=== PATIENT | male | born 1935 | race Caucasian/White ===

== ENCOUNTER 2018-03-13 11:33 | Inpatient (IN) | payer MEDICARE, BC ==
[~2018-03-13] VITALS: Ht 165.1 cm; Wt 96.0 kg
[2018-03-13] VITALS (8 sets, daily range): BP systolic 130–165; BP diastolic 59–80
[2018-03-13] MEDS ORDERED: CARV25TA PO (14:31)
[2018-03-13] MEDS ORDERED: AMLO2.5T2 PO (14:34)
[2018-03-13] MEDS ORDERED: MULT-38 PO (14:34)
[2018-03-13] MEDS ORDERED: EZET10TA26 PO (14:34)
[2018-03-13] MEDS ORDERED: FLO0.4C PO (14:34)
[2018-03-13] MEDS ORDERED: CHOL100046 PO (14:42)
[2018-03-13] MEDS ORDERED: Fish Oil PO (14:42)
[2018-03-13] MEDS ORDERED: VITA100D6 PO (14:42)
[2018-03-13] MEDS ORDERED: ATR0.5NEB IH (14:47)
[2018-03-13] MEDS ORDERED: FLUT1AER INH (14:47)
[2018-03-13] MEDS ORDERED: ALBU1.257 NEB (14:47)
[2018-03-13] MEDS ORDERED: SENN1TAB5 PO (14:52)
[2018-03-13] MEDS ORDERED: MAGN296S50 PO (14:52)
[2018-03-13] MEDS ORDERED: MAGN800O PO (14:52)
[2018-03-13] MEDS: normal saline 1000ml 1,000 ML IV SCH (15:16)
[2018-03-13] MEDS ORDERED: magnesium hydroxide 30ml (MOM) UD suspension PO PRN ×2 (15:20)
[2018-03-13] MEDS ORDERED: mag hydrox/Alum hydrox/simeth 30ml oral suspension PO PRN (15:20)
[2018-03-13] MEDS ORDERED: bisacodyl 10mg suppository rectal RC PRN (15:20)
[2018-03-13] MEDS ORDERED: diphenhydrAMINE 25mg capsule PO PRN (15:20)
[2018-03-13] MEDS ORDERED: diphenhydrAMINE 50 mg/ml inj IV PRN (15:20)
[2018-03-13] MEDS ORDERED: HYDROcodone/acetaminophen 10/325mg tab PO PRN (15:20)
[2018-03-13] MEDS ORDERED: morphine 4 MG/ML inj SYRINge IV PRN ×2 (15:20)
[2018-03-13] MEDS ORDERED: ondansetron/PF 4mg/2ml inj IV PRN (15:20)
[2018-03-13] MEDS ORDERED: HYDROmorphone 1 mg/ml syringe IV PRN ×2 (15:20)
[2018-03-13] MEDS ORDERED: metoclopramide 5 mg/ml inj IV PRN (15:20)
[2018-03-13] MEDS ORDERED: acetaminophen 325mg tablet PO PRN ×2 (15:20)
[2018-03-13] MEDS ORDERED: dextrose ORAL solution 15 GM/59 ML bottle PO PRN (15:25)
[2018-03-13] MEDS ORDERED: dextrose 50%-water 50ml dispensing syringe IV PRN ×2 (15:25)
[2018-03-13] MEDS ORDERED: glucagon, human recombinant 1mg kit SUBCUT PRN (15:25)
[2018-03-13] MEDS ORDERED: MESSAGE TO PHARMACY PO ONE (15:25)
[2018-03-13 16:07] LABS: HEMOGLOBIN A1C 5.7 % (4.5-6.2)
[2018-03-13 16:21] LABS: LIPASE 104 U/L (73-393); MAGNESIUM 2.8 MG/DL (1.5-2.4); PHOSPHORUS 4.9 MG/DL (2.3-4.5)
[2018-03-13 16:51] LABS: PARTIAL THROMBOPLASTIN TIME 27 SECONDS (22-32)
[2018-03-13] MEDS ORDERED: fentaNYL/PF 50MCG/1 ML 2ML syringe ONE (16:51)
[2018-03-13] MEDS ORDERED: LIDOcaine Viscous 15ml cup ONE (16:51)
[2018-03-13] MEDS ORDERED: MIDAZolam 5mg/5ml vial ONE (16:51)
[2018-03-13 20:27] LABS: BASOPHILS % (AUTO) 0.1 % (0-1); EOSINOPHILS # (AUTO) 0.3 X10'3 (0-0.9); EOSINOPHILS % (AUTO) 2.2 % (0-6); HEMOGLOBIN 10.8 g/dl (14.0-17.9); LYMPHOCYTES # (AUTO) 0.7 X10'3 (1.1-4.8); LYMPHOCYTES % (AUTO) 5.3 % (21-51); MEAN CORPUSCULAR HEMOGLOBIN 30.1 PG (27.0-31.0); MEAN CORPUSCULAR HGB CONC 33.9 % (33.0-36.5); MEAN CORPUSCULAR VOLUME 88.7 FL (78-98); MEAN PLATELET VOLUME 7.6 FL (7.4-10.4); MONOCYTES # (AUTO) 0.8 X10'3 (0-0.9); MONOCYTES % (AUTO) 6.3 % (2-12); NEUTROPHILS # (AUTO) 10.9 X10'3 (1.8-7.7); NEUTROPHILS % (AUTO) 86.1 % (42-75); PLATELET COUNT 354 X10'3 (140-440); RED CELL DISTRIBUTION WIDTH 15.2 % (11.5-14.5); WHITE BLOOD COUNT 12.7 X10'3 (4.5-11.0)
[2018-03-13] MEDS: tamsulosin 0.4mg capsule PO SCH (20:32)
[2018-03-13] MEDS: pantoprazole 40MG/NS 100ML BAG 100 ML IV SCH (20:33)
[2018-03-13] MEDS: methylPREDNISolone sod succ 125mg/2ml vial IV SCH (20:33)
[2018-03-13] MEDS: carVEDilol 12.5mg tablet PO SCH (20:34)
[2018-03-13] MEDS: docusate sod 100mg capsule PO SCH (20:34)
[2018-03-13] MEDS: ipratropium 0.5 MG/2.5ML nebule IH SCH (20:51)
[2018-03-13] MEDS ORDERED: temazepam 15mg capsule PO PRN (21:00)
[2018-03-14] VITALS (19 sets, daily range): BP systolic 97–163; BP diastolic 50–77
[2018-03-14] MEDS: normal saline 1000ml 1,000 ML IV SCH ×3 (01:16→21:16)
[2018-03-14 04:49] LABS: BASOPHILS % (AUTO) 0 % (0-1); EOSINOPHILS # (AUTO) 0.1 X10'3 (0-0.9); EOSINOPHILS % (AUTO) 1.1 % (0-6); HEMOGLOBIN 11.3 g/dl (14.0-17.9); LYMPHOCYTES # (AUTO) 0.2 X10'3 (1.1-4.8); LYMPHOCYTES % (AUTO) 2.6 % (21-51); MEAN CORPUSCULAR HEMOGLOBIN 29.8 PG (27.0-31.0); MEAN CORPUSCULAR HGB CONC 33.3 % (33.0-36.5); MEAN CORPUSCULAR VOLUME 89.6 FL (78-98); MEAN PLATELET VOLUME 7.7 FL (7.4-10.4); MONOCYTES % (AUTO) 0.5 % (2-12); NEUTROPHILS # (AUTO) 8.2 X10'3 (1.8-7.7); NEUTROPHILS % (AUTO) 95.8 % (42-75); PLATELET COUNT 348 X10'3 (140-440); RED BLOOD COUNT 3.79 X10'6 (4.70-6.10); RED CELL DISTRIBUTION WIDTH 14.9 % (11.5-14.5); WHITE BLOOD COUNT 8.5 X10'3 (4.5-11.0)
[2018-03-14 05:08] LABS: ALANINE AMINOTRANSFERASE 30 U/L (12-78); ALBUMIN 1.9 G/DL (3.4-5.0); ALBUMIN/GLOBULIN RATIO 0.5 (1.1-1.5); ALKALINE PHOSPHATASE 97 IU/L (46-116); ANION GAP 11 (8-16); ASPARTATE AMINO TRANSFERASE 17 U/L (10-37); BILIRUBIN,TOTAL 0.3 MG/DL (0.1-1.0); BLOOD UREA NITROGEN 76 MG/DL (7-18); BUN/CREATININE RATIO 14.6 (5.4-32.0); CHLORIDE 110 MMOL/L (99-107); CHOLESTEROL 110 MG/DL (0-200); CREATININE 5.22 MG/DL (0.60-1.10); GLUCOSE 174 MG/DL (70-104); HDL CHOLESTEROL 37 MG/DL (35-60); LDL CHOLESTEROL 57 MG/DL (50-100); POTASSIUM 5.2 MMOL/L (3.5-5.1); SODIUM 142 MMOL/L (135-145); TOTAL CARBON DIOXIDE 21.4 MMOL/L (24-32); TOTAL PROTEIN 5.6 G/DL (6.4-8.2); TRIGLYCERIDES 67 MG/DL (20-135); eGFR 11 ML/MIN
[2018-03-14] MEDS ORDERED: pantoprazole 40mg Tablet.DR PO SCH (07:30)
[2018-03-14] MEDS: docusate sod 100mg capsule PO SCH ×2 (08:00→20:21)
[2018-03-14] MEDS: amLODIPine 5mg tablet PO SCH (08:00)
[2018-03-14] MEDS: tamsulosin 0.4mg capsule PO SCH (08:00)
[2018-03-14] MEDS: carVEDilol 12.5mg tablet PO SCH ×2 (08:00→20:21)
[2018-03-14] MEDS: vitamin D (cholecalciferol) 1,000 unit tablet PO SCH (08:00)
[2018-03-14] MEDS: methylPREDNISolone sod succ 125mg/2ml vial IV SCH ×2 (08:00→20:21)
[2018-03-14] MEDS: nicotine 21mg patch - 24 hr TD SCH (08:00)
[2018-03-14] MEDS: ipratropium 0.5 MG/2.5ML nebule IH SCH ×3 (08:17→21:46)
[2018-03-14] MEDS: pantoprazole 40MG/NS 100ML BAG 100 ML IV SCH ×2 (13:31→20:21)
[2018-03-14] MEDS ORDERED: iohexol 300 MG/1 ML 50ml polymer ONE (15:10)
[2018-03-14] MEDS ORDERED: desflurane 240ml liquid inh. IH ONE (15:15)
[2018-03-14] MEDS ORDERED: ringers solution, lacted 1,000 ML IV SCH (15:19)
[2018-03-14] MEDS ORDERED: ondansetron/PF 4mg/2ml inj IV PRN (15:20)
[2018-03-14] MEDS ORDERED: proCHLORperazine 10 MG/2 ml inj IV PRN (15:20)
[2018-03-14] MEDS ORDERED: morphine 4 MG/ML inj SYRINge IV PRN ×2 (15:20)
[2018-03-14] MEDS ORDERED: fentaNYL/PF 50MCG/1 ML 2ML syringe ONE (15:27)
[2018-03-14] MEDS ORDERED: midazolam 2 mg/2 ml injection ONE (15:27)
[2018-03-15 03:00] VITALS: BP 140/58
[2018-03-15 05:13] LABS: BASOPHILS % (AUTO) 0 % (0-1); EOSINOPHILS # (AUTO) 0.1 X10'3 (0-0.9); HEMATOCRIT 30.4 % (42.0-52.0); HEMOGLOBIN 10.1 g/dl (14.0-17.9); LYMPHOCYTES # (AUTO) 0.2 X10'3 (1.1-4.8); LYMPHOCYTES % (AUTO) 1.2 % (21-51); MEAN CORPUSCULAR HEMOGLOBIN 29.6 PG (27.0-31.0); MEAN CORPUSCULAR HGB CONC 33.1 % (33.0-36.5); MEAN CORPUSCULAR VOLUME 89.5 FL (78-98); MEAN PLATELET VOLUME 7.7 FL (7.4-10.4); MONOCYTES # (AUTO) 0.1 X10'3 (0-0.9); MONOCYTES % (AUTO) 0.8 % (2-12); NEUTROPHILS # (AUTO) 13.3 X10'3 (1.8-7.7); PLATELET COUNT 350 X10'3 (140-440); RED CELL DISTRIBUTION WIDTH 15.1 % (11.5-14.5); WHITE BLOOD COUNT 13.7 X10'3 (4.5-11.0)
[2018-03-15 05:23] LABS: ALANINE AMINOTRANSFERASE 22 U/L (12-78); ALBUMIN 1.8 G/DL (3.4-5.0); ALBUMIN/GLOBULIN RATIO 0.6 (1.1-1.5); ALKALINE PHOSPHATASE 88 IU/L (46-116); ANION GAP 12 (8-16); ASPARTATE AMINO TRANSFERASE 12 U/L (10-37); BILIRUBIN,TOTAL 0.2 MG/DL (0.1-1.0); BLOOD UREA NITROGEN 87 MG/DL (7-18); BUN/CREATININE RATIO 17.5 (5.4-32.0); CHLORIDE 109 MMOL/L (99-107); CREATININE 4.97 MG/DL (0.60-1.10); GLUCOSE 279 MG/DL (70-104); POTASSIUM 5.4 MMOL/L (3.5-5.1); SODIUM 140 MMOL/L (135-145); TOTAL CARBON DIOXIDE 19.2 MMOL/L (24-32); eGFR 11 ML/MIN
[2018-03-15 06:00] VITALS: BP 150/65
[2018-03-15] MEDS: normal saline 1000ml 1,000 ML IV SCH ×3 (07:16→21:03)
[2018-03-15] MEDS: pantoprazole 40MG/NS 100ML BAG 100 ML IV SCH ×2 (07:24→20:30)
[2018-03-15] MEDS: nicotine 21mg patch - 24 hr TD SCH (08:00)
[2018-03-15] MEDS ORDERED: levoFLOXACIN-Levaquin 500mg/D5 100 ML IV SCH (08:00)
[2018-03-15] MEDS: insulin Lispro (HumaLOG) vial - multi-dose SQ SCH ×3 (08:30→18:52)
[2018-03-15] MEDS: amLODIPine 5mg tablet PO SCH (08:31)
[2018-03-15] MEDS: methylPREDNISolone sod succ 125mg/2ml vial IV SCH ×2 (08:31→20:30)
[2018-03-15] MEDS: docusate sod 100mg capsule PO SCH ×2 (08:31→20:30)
[2018-03-15] MEDS: vitamin D (cholecalciferol) 1,000 unit tablet PO SCH (08:31)
[2018-03-15] MEDS: tamsulosin 0.4mg capsule PO SCH (08:32)
[2018-03-15] MEDS: carVEDilol 12.5mg tablet PO SCH ×2 (08:32→20:30)
[2018-03-15] MEDS: ipratropium 0.5 MG/2.5ML nebule IH SCH ×3 (09:05→20:00)
[2018-03-15 11:00] VITALS: BP 149/59
[2018-03-15 15:00] VITALS: BP 145/57
[2018-03-15 18:00] VITALS: BP 156/49
[2018-03-15] MEDS: lactobacillus rhamnosus 10,000 MMU CELLS/CAPSULE PO SCH (20:30)
[2018-03-15] MEDS: Melatonin 3mg tablet PO SCH (20:31)
[2018-03-15 22:00] VITALS: BP 139/54
[2018-03-16 02:00] VITALS: BP 142/57
[2018-03-16 05:32] LABS: BASOPHILS % (AUTO) 0 % (0-1); EOSINOPHILS # (AUTO) 0.3 X10'3 (0-0.9); EOSINOPHILS % (AUTO) 1.7 % (0-6); HEMATOCRIT 28.6 % (42.0-52.0); HEMOGLOBIN 9.5 g/dl (14.0-17.9); LYMPHOCYTES # (AUTO) 0.2 X10'3 (1.1-4.8); LYMPHOCYTES % (AUTO) 1.4 % (21-51); MEAN CORPUSCULAR HEMOGLOBIN 29.8 PG (27.0-31.0); MEAN CORPUSCULAR HGB CONC 33.3 % (33.0-36.5); MEAN CORPUSCULAR VOLUME 89.4 FL (78-98); MEAN PLATELET VOLUME 7.4 FL (7.4-10.4); MONOCYTES # (AUTO) 0.1 X10'3 (0-0.9); MONOCYTES % (AUTO) 0.6 % (2-12); NEUTROPHILS # (AUTO) 14.5 X10'3 (1.8-7.7); NEUTROPHILS % (AUTO) 96.3 % (42-75); PLATELET COUNT 319 X10'3 (140-440); RED CELL DISTRIBUTION WIDTH 14.7 % (11.5-14.5); WHITE BLOOD COUNT 15.1 X10'3 (4.5-11.0)
[2018-03-16 05:54] LABS: ALBUMIN 1.7 G/DL (3.4-5.0); ALBUMIN/GLOBULIN RATIO 0.6 (1.1-1.5); ANION GAP 11 (8-16); ASPARTATE AMINO TRANSFERASE 10 U/L (10-37); BILIRUBIN,TOTAL 0.1 MG/DL (0.1-1.0); BLOOD UREA NITROGEN 86 MG/DL (7-18); BUN/CREATININE RATIO 18.9 (5.4-32.0); CALCIUM 8.4 MG/DL (8.5-10.1); CHLORIDE 110 MMOL/L (99-107); CREATININE 4.55 MG/DL (0.60-1.10); GLUCOSE 210 MG/DL (70-104); POTASSIUM 5.1 MMOL/L (3.5-5.1); SODIUM 141 MMOL/L (135-145); TOTAL CARBON DIOXIDE 20.1 MMOL/L (24-32); TOTAL PROTEIN 4.7 G/DL (6.4-8.2); eGFR 12 ML/MIN
[2018-03-16 05:55] LABS: ALANINE AMINOTRANSFERASE 20 U/L (12-78); ALKALINE PHOSPHATASE 78 IU/L (46-116)
[2018-03-16 06:49] VITALS: BP 165/60
[2018-03-16] MEDS: ipratropium 0.5 MG/2.5ML nebule IH SCH ×3 (07:28→21:09)
[2018-03-16] MEDS: nicotine 21mg patch - 24 hr TD SCH (08:00)
[2018-03-16] MEDS: insulin Lispro (HumaLOG) vial - multi-dose SQ SCH ×2 (08:12→13:08)
[2018-03-16] MEDS: tamsulosin 0.4mg capsule PO SCH (08:13)
[2018-03-16] MEDS: lactobacillus rhamnosus 10,000 MMU CELLS/CAPSULE PO SCH ×2 (08:13→20:32)
[2018-03-16] MEDS: methylPREDNISolone sod succ 125mg/2ml vial IV SCH ×2 (08:13→20:32)
[2018-03-16] MEDS: vitamin D (cholecalciferol) 1,000 unit tablet PO SCH (08:13)
[2018-03-16] MEDS: amLODIPine 5mg tablet PO SCH (08:13)
[2018-03-16] MEDS: pantoprazole 40MG/NS 100ML BAG 100 ML IV SCH (08:13)
[2018-03-16] MEDS: carVEDilol 12.5mg tablet PO SCH ×2 (08:14→20:32)
[2018-03-16] MEDS: docusate sod 100mg capsule PO SCH ×2 (08:14→20:00)
[2018-03-16] MEDS: levoFLOXACIN 250mg tablet PO SCH (11:51)
[2018-03-16 12:05] VITALS: BP 139/54
[2018-03-16 16:14] VITALS: BP 128/55
[2018-03-16] MEDS: normal saline 1000ml 1,000 ML IV SCH (17:13)
[2018-03-16 19:00] VITALS: BP 141/62
[2018-03-16] MEDS: Melatonin 3mg tablet PO SCH (22:13)
[2018-03-16 23:00] VITALS: BP 99/57
[2018-03-17 03:00] VITALS: BP 138/65
[2018-03-17 05:48] LABS: BASOPHILS % (AUTO) 0 % (0-1); EOSINOPHILS # (AUTO) 0.3 X10'3 (0-0.9); EOSINOPHILS % (AUTO) 1.6 % (0-6); HEMATOCRIT 30.1 % (42.0-52.0); LYMPHOCYTES # (AUTO) 0.4 X10'3 (1.1-4.8); LYMPHOCYTES % (AUTO) 2.2 % (21-51); MEAN CORPUSCULAR HEMOGLOBIN 29.4 PG (27.0-31.0); MEAN CORPUSCULAR HGB CONC 33.3 % (33.0-36.5); MEAN CORPUSCULAR VOLUME 88.1 FL (78-98); MEAN PLATELET VOLUME 7.5 FL (7.4-10.4); MONOCYTES # (AUTO) 0.2 X10'3 (0-0.9); MONOCYTES % (AUTO) 1.4 % (2-12); NEUTROPHILS # (AUTO) 15.8 X10'3 (1.8-7.7); NEUTROPHILS % (AUTO) 94.8 % (42-75); PLATELET COUNT 327 X10'3 (140-440); RED BLOOD COUNT 3.42 X10'6 (4.70-6.10); RED CELL DISTRIBUTION WIDTH 15.6 % (11.5-14.5); WHITE BLOOD COUNT 16.6 X10'3 (4.5-11.0)
[2018-03-17 06:00] VITALS: BP 160/67
[2018-03-17 06:24] LABS: ALANINE AMINOTRANSFERASE 15 U/L (12-78); ALBUMIN 1.8 G/DL (3.4-5.0); ALBUMIN/GLOBULIN RATIO 0.6 (1.1-1.5); ALKALINE PHOSPHATASE 75 IU/L (46-116); ANION GAP 12 (8-16); ASPARTATE AMINO TRANSFERASE 12 U/L (10-37); BILIRUBIN,TOTAL 0.1 MG/DL (0.1-1.0); BLOOD UREA NITROGEN 89 MG/DL (7-18); BUN/CREATININE RATIO 19.9 (5.4-32.0); CALCIUM 8.1 MG/DL (8.5-10.1); CHLORIDE 110 MMOL/L (99-107); CREATININE 4.47 MG/DL (0.60-1.10); GLUCOSE 218 MG/DL (70-104); POTASSIUM 5.1 MMOL/L (3.5-5.1); SODIUM 142 MMOL/L (135-145); TOTAL PROTEIN 4.7 G/DL (6.4-8.2); eGFR 13 ML/MIN
[2018-03-17] MEDS: ipratropium 0.5 MG/2.5ML nebule IH SCH ×3 (07:43→20:30)
[2018-03-17] MEDS: nicotine 21mg patch - 24 hr TD SCH (08:00)
[2018-03-17] MEDS: methylPREDNISolone sod succ 125mg/2ml vial IV SCH (08:24)
[2018-03-17] MEDS: lactobacillus rhamnosus 10,000 MMU CELLS/CAPSULE PO SCH ×2 (08:24→19:42)
[2018-03-17] MEDS: tamsulosin 0.4mg capsule PO SCH (08:25)
[2018-03-17] MEDS: carVEDilol 12.5mg tablet PO SCH ×2 (08:25→19:43)
[2018-03-17] MEDS: amLODIPine 5mg tablet PO SCH (08:26)
[2018-03-17] MEDS: pantoprazole 40MG/NS 100ML BAG 100 ML IV SCH (08:26)
[2018-03-17] MEDS: docusate sod 100mg capsule PO SCH ×2 (08:26→20:00)
[2018-03-17] MEDS: insulin Lispro (HumaLOG) vial - multi-dose SQ SCH ×3 (08:40→19:08)
[2018-03-17] MEDS: levoFLOXACIN 250mg tablet PO SCH (10:52)
[2018-03-17 11:00] VITALS: BP 153/61
[2018-03-17 17:28] LABS: CLARITY,URINE SLIGHTLY CLOUDY (Clear); COLOR,URINE STRAW (Yellow); GLUCOSE, URINE 100 mg/dl (Neg); KETONES,URINE NEGATIVE (Neg); LEUKOCYTE ESTERASE ,URINE SMALL (Neg); NITRITES, URINE NEGATIVE (Neg); OCCULT BLOOD,URINE LARGE (Neg); PH,URINE 5.5 (4.8-8.0); PROTEIN,URINE 100 mg/dl (Neg); UROBILINOGEN,URINE 0.2 E.U/dL (0.2-1.0)
[2018-03-17 17:34] LABS: UA COLLECTION TYPE NON-SPECIFIED
[2018-03-17 17:40] LABS: BACTERIA,URINE FEW /HPF (Neg); MUCUS STRANDS FEW /LPF (Neg); RBC,URINE 50-100 /HPF (0-2); SQUAMOUS EPITHELIAL CELL,UR NONE SEEN /LPF (FEW); TRANSITIONAL EPI CELLS,URINE FEW /HPF
[2018-03-17 18:07] LABS: UA EOSINOPHILS NO EOS /HPF
[2018-03-17 19:00] VITALS: BP 142/58
[2018-03-17] MEDS: Melatonin 3mg tablet PO SCH (20:40)
[2018-03-17] MEDS: normal saline 1000ml 1,000 ML IV SCH (22:30)
[2018-03-17 23:00] VITALS: BP 142/58
[2018-03-18 03:00] VITALS: BP 142/66
[2018-03-18] MEDS: normal saline 1000ml 1,000 ML IV SCH (04:39)
[2018-03-18 05:28] LABS: BASOPHILS % (AUTO) 0 % (0-1); EOSINOPHILS % (AUTO) 0 % (0-6); HEMATOCRIT 29.3 % (42.0-52.0); HEMOGLOBIN 9.8 g/dl (14.0-17.9); LYMPHOCYTES # (AUTO) 0.6 X10'3 (1.1-4.8); LYMPHOCYTES % (AUTO) 3.7 % (21-51); MEAN CORPUSCULAR HEMOGLOBIN 29.6 PG (27.0-31.0); MEAN CORPUSCULAR HGB CONC 33.5 % (33.0-36.5); MEAN CORPUSCULAR VOLUME 88.4 FL (78-98); MEAN PLATELET VOLUME 7.3 FL (7.4-10.4); MONOCYTES # (AUTO) 0.7 X10'3 (0-0.9); MONOCYTES % (AUTO) 4.4 % (2-12); NEUTROPHILS # (AUTO) 14.5 X10'3 (1.8-7.7); NEUTROPHILS % (AUTO) 91.9 % (42-75); PLATELET COUNT 315 X10'3 (140-440); RED BLOOD COUNT 3.31 X10'6 (4.70-6.10); RED CELL DISTRIBUTION WIDTH 15.5 % (11.5-14.5); WHITE BLOOD COUNT 15.7 X10'3 (4.5-11.0)
[2018-03-18 06:02] LABS: ALANINE AMINOTRANSFERASE 19 U/L (12-78); ALBUMIN 1.7 G/DL (3.4-5.0); ALBUMIN/GLOBULIN RATIO 0.6 (1.1-1.5); ALKALINE PHOSPHATASE 72 IU/L (46-116); ANION GAP 10 (8-16); ASPARTATE AMINO TRANSFERASE 12 U/L (10-37); BILIRUBIN,TOTAL 0.1 MG/DL (0.1-1.0); BLOOD UREA NITROGEN 90 MG/DL (7-18); BUN/CREATININE RATIO 22.1 (5.4-32.0); CALCIUM 8.1 MG/DL (8.5-10.1); CHLORIDE 113 MMOL/L (99-107); CREATININE 4.08 MG/DL (0.60-1.10); GLUCOSE 85 MG/DL (70-104); POTASSIUM 4.9 MMOL/L (3.5-5.1); SODIUM 144 MMOL/L (135-145); TOTAL CARBON DIOXIDE 20.9 MMOL/L (24-32); TOTAL PROTEIN 4.5 G/DL (6.4-8.2); eGFR 14 ML/MIN
[2018-03-18 07:00] VITALS: BP 146/65
[2018-03-18] MEDS: nicotine 21mg patch - 24 hr TD SCH (08:00)
[2018-03-18] MEDS: pantoprazole 40MG/NS 100ML BAG 100 ML IV SCH (08:40)
[2018-03-18] MEDS: lactobacillus rhamnosus 10,000 MMU CELLS/CAPSULE PO SCH ×2 (08:44→20:24)
[2018-03-18] MEDS: carVEDilol 12.5mg tablet PO SCH ×2 (08:44→20:24)
[2018-03-18] MEDS: amLODIPine 5mg tablet PO SCH (08:44)
[2018-03-18] MEDS: docusate sod 100mg capsule PO SCH ×2 (08:44→20:24)
[2018-03-18] MEDS: tamsulosin 0.4mg capsule PO SCH (08:44)
[2018-03-18] MEDS: insulin Lispro (HumaLOG) vial - multi-dose SQ SCH (08:50)
[2018-03-18] MEDS: ipratropium 0.5 MG/2.5ML nebule IH SCH ×3 (09:48→20:13)
[2018-03-18 11:00] VITALS: BP 146/56
[2018-03-18 15:00] VITALS: BP 137/56
[2018-03-18] MEDS: levoFLOXACIN 250mg tablet PO SCH (15:18)
[2018-03-18 19:00] VITALS: BP 141/58
[2018-03-18] MEDS: Melatonin 3mg tablet PO SCH (21:11)
[2018-03-18 23:00] VITALS: BP 135/57
[2018-03-19] MEDS: normal saline 1000ml 1,000 ML IV SCH (02:40)
[2018-03-19 03:00] VITALS: BP 134/61
[2018-03-19 07:11] VITALS: BP 142/76
[2018-03-19 07:37] LABS: BASOPHILS % (AUTO) 0.2 % (0-1); EOSINOPHILS # (AUTO) 0.2 X10'3 (0-0.9); EOSINOPHILS % (AUTO) 1.8 % (0-6); HEMATOCRIT 30.5 % (42.0-52.0); HEMOGLOBIN 10.2 g/dl (14.0-17.9); LYMPHOCYTES # (AUTO) 0.8 X10'3 (1.1-4.8); LYMPHOCYTES % (AUTO) 7.3 % (21-51); MEAN CORPUSCULAR HEMOGLOBIN 29.7 PG (27.0-31.0); MEAN CORPUSCULAR HGB CONC 33.4 % (33.0-36.5); MEAN CORPUSCULAR VOLUME 88.9 FL (78-98); MEAN PLATELET VOLUME 7.4 FL (7.4-10.4); MONOCYTES # (AUTO) 0.6 X10'3 (0-0.9); MONOCYTES % (AUTO) 5.6 % (2-12); NEUTROPHILS % (AUTO) 85.1 % (42-75); PLATELET COUNT 298 X10'3 (140-440); RED BLOOD COUNT 3.43 X10'6 (4.70-6.10); RED CELL DISTRIBUTION WIDTH 15.9 % (11.5-14.5); WHITE BLOOD COUNT 10.6 X10'3 (4.5-11.0)
[2018-03-19 07:53] LABS: ALANINE AMINOTRANSFERASE 34 U/L (12-78); ALBUMIN 1.8 G/DL (3.4-5.0); ALBUMIN/GLOBULIN RATIO 0.7 (1.1-1.5); ALKALINE PHOSPHATASE 75 IU/L (46-116); ANION GAP 9 (8-16); ASPARTATE AMINO TRANSFERASE 17 U/L (10-37); BILIRUBIN,TOTAL 0.2 MG/DL (0.1-1.0); BLOOD UREA NITROGEN 87 MG/DL (7-18); BUN/CREATININE RATIO 21.8 (5.4-32.0); CALCIUM 8.2 MG/DL (8.5-10.1); CHLORIDE 112 MMOL/L (99-107); CREATININE 3.99 MG/DL (0.60-1.10); GLUCOSE 138 MG/DL (70-104); POTASSIUM 4.3 MMOL/L (3.5-5.1); SODIUM 142 MMOL/L (135-145); TOTAL CARBON DIOXIDE 21.3 MMOL/L (24-32); TOTAL PROTEIN 4.4 G/DL (6.4-8.2); eGFR 14 ML/MIN
[2018-03-19] MEDS: nicotine 21mg patch - 24 hr TD SCH (08:00)
[2018-03-19] MEDS: pantoprazole 40MG/NS 100ML BAG 100 ML IV SCH (08:14)
[2018-03-19] MEDS: carVEDilol 12.5mg tablet PO SCH ×2 (08:16→20:02)
[2018-03-19] MEDS: lactobacillus rhamnosus 10,000 MMU CELLS/CAPSULE PO SCH ×2 (08:16→20:02)
[2018-03-19] MEDS: amLODIPine 5mg tablet PO SCH (08:16)
[2018-03-19] MEDS: docusate sod 100mg capsule PO SCH ×2 (08:16→20:02)
[2018-03-19] MEDS: tamsulosin 0.4mg capsule PO SCH (08:16)
[2018-03-19] MEDS: ipratropium 0.5 MG/2.5ML nebule IH SCH ×3 (08:37→20:38)
[2018-03-19] MEDS: insulin Lispro (HumaLOG) vial - multi-dose SQ SCH ×2 (08:46→13:58)
[2018-03-19 11:30] VITALS: BP 154/71
[2018-03-19] MEDS: levoFLOXACIN 250mg tablet PO SCH (13:47)
[2018-03-19 15:00] VITALS: BP 149/54
[2018-03-19] MEDS: dextrose ORAL solution 15 GM/59 ML bottle PO PRN ×2 (17:49→18:09)
[2018-03-19 19:00] VITALS: BP 142/64
[2018-03-19] MEDS: pantoprazole 40mg Tablet.DR PO SCH (20:02)
[2018-03-19] MEDS: Melatonin 3mg tablet PO SCH (21:02)
[2018-03-19 23:00] VITALS: BP 122/59
[2018-03-20 03:00] VITALS: BP 145/67
[2018-03-20 05:19] LABS: BASOPHILS % (AUTO) 0 % (0-1); EOSINOPHILS # (AUTO) 0.4 X10'3 (0-0.9); EOSINOPHILS % (AUTO) 3.5 % (0-6); HEMATOCRIT 28.8 % (42.0-52.0); HEMOGLOBIN 9.6 g/dl (14.0-17.9); LYMPHOCYTES # (AUTO) 0.8 X10'3 (1.1-4.8); LYMPHOCYTES % (AUTO) 6.8 % (21-51); MEAN CORPUSCULAR HEMOGLOBIN 29.6 PG (27.0-31.0); MEAN CORPUSCULAR HGB CONC 33.3 % (33.0-36.5); MEAN CORPUSCULAR VOLUME 88.8 FL (78-98); MEAN PLATELET VOLUME 7.3 FL (7.4-10.4); MONOCYTES # (AUTO) 0.7 X10'3 (0-0.9); NEUTROPHILS # (AUTO) 9.4 X10'3 (1.8-7.7); NEUTROPHILS % (AUTO) 83.7 % (42-75); PLATELET COUNT 280 X10'3 (140-440); RED BLOOD COUNT 3.25 X10'6 (4.70-6.10); RED CELL DISTRIBUTION WIDTH 15.2 % (11.5-14.5); WHITE BLOOD COUNT 11.2 X10'3 (4.5-11.0)
[2018-03-20 05:43] LABS: ALANINE AMINOTRANSFERASE 33 U/L (12-78); ALBUMIN 1.8 G/DL (3.4-5.0); ALBUMIN/GLOBULIN RATIO 0.7 (1.1-1.5); ALKALINE PHOSPHATASE 74 IU/L (46-116); ANION GAP 9 (8-16); ASPARTATE AMINO TRANSFERASE 19 U/L (10-37); BILIRUBIN,TOTAL 0.2 MG/DL (0.1-1.0); BLOOD UREA NITROGEN 83 MG/DL (7-18); BUN/CREATININE RATIO 21.2 (5.4-32.0); CHLORIDE 112 MMOL/L (99-107); CREATININE 3.92 MG/DL (0.60-1.10); GLUCOSE 121 MG/DL (70-104); MAGNESIUM 1.7 MG/DL (1.5-2.4); PHOSPHORUS 4.3 MG/DL (2.3-4.5); POTASSIUM 4.3 MMOL/L (3.5-5.1); SODIUM 143 MMOL/L (135-145); TOTAL CARBON DIOXIDE 22.1 MMOL/L (24-32); TOTAL PROTEIN 4.4 G/DL (6.4-8.2); eGFR 15 ML/MIN
[2018-03-20 06:59] VITALS: BP 145/61
[2018-03-20] MEDS: ipratropium 0.5 MG/2.5ML nebule IH SCH ×4 (06:59→20:59)
[2018-03-20] MEDS: amLODIPine 5mg tablet PO SCH (07:10)
[2018-03-20] MEDS: tamsulosin 0.4mg capsule PO SCH (07:10)
[2018-03-20] MEDS: docusate sod 100mg capsule PO SCH ×2 (07:10→20:00)
[2018-03-20] MEDS: carVEDilol 12.5mg tablet PO SCH ×2 (07:10→20:00)
[2018-03-20] MEDS: lactobacillus rhamnosus 10,000 MMU CELLS/CAPSULE PO SCH ×2 (07:11→20:00)
[2018-03-20] MEDS: nicotine 21mg patch - 24 hr TD SCH (07:11)
[2018-03-20] MEDS: pantoprazole 40mg Tablet.DR PO SCH ×2 (07:11→20:00)
[2018-03-20] MEDS: insulin Lispro (HumaLOG) vial - multi-dose SQ SCH ×3 (09:34→19:14)
[2018-03-20] MEDS: levoFLOXACIN 250mg tablet PO SCH (11:30)
[2018-03-20 11:35] VITALS: BP 151/52
[2018-03-20] MEDS: normal saline 1000ml 1,000 ML IV SCH (12:58)
[2018-03-20 15:50] VITALS: BP 150/58
[2018-03-20 19:00] VITALS: BP 115/70
[2018-03-20] MEDS: Melatonin 3mg tablet PO SCH (21:16)
[2018-03-20 23:00] VITALS: BP 138/52
[2018-03-21 04:57] VITALS: BP 140/70
[2018-03-21] MEDS: normal saline 1000ml 1,000 ML IV SCH ×2 (05:02→19:04)
[2018-03-21 05:08] LABS: BASOPHILS % (AUTO) 0.1 % (0-1); EOSINOPHILS # (AUTO) 0.5 X10'3 (0-0.9); EOSINOPHILS % (AUTO) 4.2 % (0-6); HEMATOCRIT 28.7 % (42.0-52.0); HEMOGLOBIN 9.5 g/dl (14.0-17.9); LYMPHOCYTES # (AUTO) 0.7 X10'3 (1.1-4.8); LYMPHOCYTES % (AUTO) 6.7 % (21-51); MEAN CORPUSCULAR HEMOGLOBIN 29.2 PG (27.0-31.0); MEAN CORPUSCULAR HGB CONC 33.1 % (33.0-36.5); MEAN CORPUSCULAR VOLUME 88.4 FL (78-98); MEAN PLATELET VOLUME 7.6 FL (7.4-10.4); MONOCYTES # (AUTO) 0.7 X10'3 (0-0.9); MONOCYTES % (AUTO) 6.3 % (2-12); NEUTROPHILS % (AUTO) 82.7 % (42-75); PLATELET COUNT 274 X10'3 (140-440); RED BLOOD COUNT 3.24 X10'6 (4.70-6.10); RED CELL DISTRIBUTION WIDTH 15.3 % (11.5-14.5); WHITE BLOOD COUNT 10.9 X10'3 (4.5-11.0)
[2018-03-21 05:17] LABS: ALANINE AMINOTRANSFERASE 27 U/L (12-78); ALBUMIN 1.8 G/DL (3.4-5.0); ALBUMIN/GLOBULIN RATIO 0.7 (1.1-1.5); ALKALINE PHOSPHATASE 61 IU/L (46-116); ANION GAP 7 (8-16); ASPARTATE AMINO TRANSFERASE 14 U/L (10-37); BILIRUBIN,TOTAL 0.2 MG/DL (0.1-1.0); BLOOD UREA NITROGEN 73 MG/DL (7-18); BUN/CREATININE RATIO 20.8 (5.4-32.0); CALCIUM 8.1 MG/DL (8.5-10.1); CHLORIDE 114 MMOL/L (99-107); CREATININE 3.51 MG/DL (0.60-1.10); GLUCOSE 107 MG/DL (70-104); MAGNESIUM 1.4 MG/DL (1.5-2.4); POTASSIUM 4.1 MMOL/L (3.5-5.1); SODIUM 144 MMOL/L (135-145); TOTAL CARBON DIOXIDE 23.2 MMOL/L (24-32); TOTAL PROTEIN 4.4 G/DL (6.4-8.2); eGFR 17 ML/MIN
[2018-03-21] MEDS: nicotine 21mg patch - 24 hr TD SCH (08:00)
[2018-03-21] MEDS: pantoprazole 40mg Tablet.DR PO SCH ×2 (08:44→20:00)
[2018-03-21] MEDS: docusate sod 100mg capsule PO SCH ×2 (08:45→19:59)
[2018-03-21] MEDS: lactobacillus rhamnosus 10,000 MMU CELLS/CAPSULE PO SCH ×2 (08:45→20:00)
[2018-03-21] MEDS: carVEDilol 12.5mg tablet PO SCH ×2 (08:45→20:00)
[2018-03-21] MEDS: amLODIPine 5mg tablet PO SCH (08:45)
[2018-03-21] MEDS: tamsulosin 0.4mg capsule PO SCH (08:45)
[2018-03-21] MEDS: insulin Lispro (HumaLOG) vial - multi-dose SQ SCH ×2 (09:29→12:56)
[2018-03-21] MEDS: levoFLOXACIN 250mg tablet PO SCH (12:36)
[2018-03-21] MEDS: ipratropium 0.5 MG/2.5ML nebule IH SCH ×2 (13:51→20:20)
[2018-03-21 19:00] VITALS: BP 142/64
[2018-03-21] MEDS: Melatonin 3mg tablet PO SCH (21:21)
[2018-03-21 23:00] VITALS: BP 142/53
[2018-03-22 03:00] VITALS: BP 134/47
[2018-03-22 05:57] LABS: BASOPHILS % (AUTO) 0.2 % (0-1); EOSINOPHILS # (AUTO) 0.3 X10'3 (0-0.9); EOSINOPHILS % (AUTO) 2.6 % (0-6); HEMATOCRIT 27.1 % (42.0-52.0); HEMOGLOBIN 9.1 g/dl (14.0-17.9); LYMPHOCYTES # (AUTO) 0.8 X10'3 (1.1-4.8); LYMPHOCYTES % (AUTO) 6.4 % (21-51); MEAN CORPUSCULAR HEMOGLOBIN 29.5 PG (27.0-31.0); MEAN CORPUSCULAR HGB CONC 33.7 % (33.0-36.5); MEAN CORPUSCULAR VOLUME 87.5 FL (78-98); MEAN PLATELET VOLUME 7.8 FL (7.4-10.4); MONOCYTES # (AUTO) 0.8 X10'3 (0-0.9); MONOCYTES % (AUTO) 7.1 % (2-12); NEUTROPHILS % (AUTO) 83.7 % (42-75); PLATELET COUNT 278 X10'3 (140-440); RED BLOOD COUNT 3.09 X10'6 (4.70-6.10); RED CELL DISTRIBUTION WIDTH 15.2 % (11.5-14.5); WHITE BLOOD COUNT 11.9 X10'3 (4.5-11.0)
[2018-03-22 06:19] LABS: ALANINE AMINOTRANSFERASE 25 U/L (12-78); ALBUMIN 1.9 G/DL (3.4-5.0); ALBUMIN/GLOBULIN RATIO 0.7 (1.1-1.5); ALKALINE PHOSPHATASE 68 IU/L (46-116); ANION GAP 7 (8-16); ASPARTATE AMINO TRANSFERASE 17 U/L (10-37); BILIRUBIN,TOTAL 0.2 MG/DL (0.1-1.0); BLOOD UREA NITROGEN 69 MG/DL (7-18); BUN/CREATININE RATIO 22.6 (5.4-32.0); CALCIUM 7.6 MG/DL (8.5-10.1); CHLORIDE 114 MMOL/L (99-107); CREATININE 3.05 MG/DL (0.60-1.10); GLUCOSE 106 MG/DL (70-104); MAGNESIUM 1.5 MG/DL (1.5-2.4); PHOSPHORUS 3.8 MG/DL (2.3-4.5); SODIUM 144 MMOL/L (135-145); TOTAL CARBON DIOXIDE 23.3 MMOL/L (24-32); TOTAL PROTEIN 4.5 G/DL (6.4-8.2); eGFR 20 ML/MIN
[2018-03-22] MEDS: docusate sod 100mg capsule PO SCH ×2 (07:46→19:13)
[2018-03-22] MEDS: carVEDilol 12.5mg tablet PO SCH ×2 (07:46→19:13)
[2018-03-22] MEDS: amLODIPine 5mg tablet PO SCH (07:47)
[2018-03-22] MEDS: lactobacillus rhamnosus 10,000 MMU CELLS/CAPSULE PO SCH ×2 (07:47→19:13)
[2018-03-22] MEDS: nicotine 21mg patch - 24 hr TD SCH (07:47)
[2018-03-22] MEDS: tamsulosin 0.4mg capsule PO SCH (07:47)
[2018-03-22] MEDS: pantoprazole 40mg Tablet.DR PO SCH ×2 (07:47→19:13)
[2018-03-22] MEDS: normal saline 1000ml 1,000 ML IV SCH ×2 (08:45→23:03)
[2018-03-22] MEDS: ipratropium 0.5 MG/2.5ML nebule IH SCH ×3 (08:52→20:51)
[2018-03-22 09:29] VITALS: BP 161/70
[2018-03-22 11:00] VITALS: BP 140/90
[2018-03-22] MEDS: levoFLOXACIN 250mg tablet PO SCH (11:12)
[2018-03-22] MEDS: insulin Lispro (HumaLOG) vial - multi-dose SQ SCH ×3 (12:37→19:01)
[2018-03-22 15:00] VITALS: BP 134/60
[2018-03-22 19:00] VITALS: BP 153/64
[2018-03-22] MEDS: Melatonin 3mg tablet PO SCH (21:13)
[2018-03-22 23:00] VITALS: BP 154/63
[2018-03-23 03:00] VITALS: BP 138/57
[2018-03-23 05:05] LABS: BASOPHILS % (AUTO) 0.3 % (0-1); EOSINOPHILS # (AUTO) 0.3 X10'3 (0-0.9); HEMATOCRIT 25.7 % (42.0-52.0); HEMOGLOBIN 8.6 g/dl (14.0-17.9); LYMPHOCYTES # (AUTO) 0.7 X10'3 (1.1-4.8); LYMPHOCYTES % (AUTO) 6.8 % (21-51); MEAN CORPUSCULAR HEMOGLOBIN 29.5 PG (27.0-31.0); MEAN CORPUSCULAR HGB CONC 33.4 % (33.0-36.5); MEAN CORPUSCULAR VOLUME 88.1 FL (78-98); MEAN PLATELET VOLUME 7.8 FL (7.4-10.4); MONOCYTES # (AUTO) 0.8 X10'3 (0-0.9); MONOCYTES % (AUTO) 7.6 % (2-12); NEUTROPHILS # (AUTO) 8.6 X10'3 (1.8-7.7); NEUTROPHILS % (AUTO) 82.3 % (42-75); PLATELET COUNT 247 X10'3 (140-440); RED BLOOD COUNT 2.92 X10'6 (4.70-6.10); RED CELL DISTRIBUTION WIDTH 15.3 % (11.5-14.5); WHITE BLOOD COUNT 10.5 X10'3 (4.5-11.0)
[2018-03-23 05:27] LABS: ALANINE AMINOTRANSFERASE 23 U/L (12-78); ALBUMIN 1.8 G/DL (3.4-5.0); ALBUMIN/GLOBULIN RATIO 0.7 (1.1-1.5); ALKALINE PHOSPHATASE 66 IU/L (46-116); ANION GAP 7 (8-16); ASPARTATE AMINO TRANSFERASE 17 U/L (10-37); BILIRUBIN,TOTAL 0.2 MG/DL (0.1-1.0); BLOOD UREA NITROGEN 62 MG/DL (7-18); BUN/CREATININE RATIO 19.3 (5.4-32.0); CALCIUM 7.5 MG/DL (8.5-10.1); CHLORIDE 115 MMOL/L (99-107); CREATININE 3.22 MG/DL (0.60-1.10); GLUCOSE 87 MG/DL (70-104); MAGNESIUM 1.3 MG/DL (1.5-2.4); POTASSIUM 4.2 MMOL/L (3.5-5.1); SODIUM 147 MMOL/L (135-145); TOTAL CARBON DIOXIDE 24.6 MMOL/L (24-32); TOTAL PROTEIN 4.4 G/DL (6.4-8.2); eGFR 18 ML/MIN
[2018-03-23 06:00] VITALS: BP 154/55
[2018-03-23] MEDS: ipratropium 0.5 MG/2.5ML nebule IH SCH ×3 (07:25→20:02)
[2018-03-23] MEDS: nicotine 21mg patch - 24 hr TD SCH (08:00)
[2018-03-23] MEDS: insulin Lispro (HumaLOG) vial - multi-dose SQ SCH ×3 (08:57→19:04)
[2018-03-23] MEDS: pantoprazole 40mg Tablet.DR PO SCH ×2 (08:58→19:05)
[2018-03-23] MEDS: carVEDilol 12.5mg tablet PO SCH ×2 (08:59→19:05)
[2018-03-23] MEDS: lactobacillus rhamnosus 10,000 MMU CELLS/CAPSULE PO SCH ×2 (08:59→19:05)
[2018-03-23] MEDS: tamsulosin 0.4mg capsule PO SCH (08:59)
[2018-03-23] MEDS: amLODIPine 5mg tablet PO SCH (08:59)
[2018-03-23] MEDS: docusate sod 100mg capsule PO SCH ×2 (09:00→19:05)
[2018-03-23 10:00] VITALS: BP 146/60
[2018-03-23] MEDS ORDERED: magnesium 4gm in 100ml NS 100 ML IV PRN (10:25)
[2018-03-23] MEDS ORDERED: magnesium 1gm/100ml D5W IVPB 100 ML IV PRN (10:25)
[2018-03-23] MEDS ORDERED: potassium Cl 20 mEq SR tablet PO PRN ×2 (10:25)
[2018-03-23] MEDS ORDERED: potassium Cl 40MEQ/NS 500ml 500 ML IV PRN ×2 (10:25)
[2018-03-23] MEDS: normal saline 1000ml 1,000 ML IV SCH (13:21)
[2018-03-23] MEDS: magnesium Cl slow-release 64mg tablet PO PRN ×2 (14:36→21:00)
[2018-03-23 15:00] VITALS: BP 138/58
[2018-03-23] MEDS ORDERED: vancomycin/NS 1 GM ADD-VANTAGE 250 ML X 1 DOSE IV ONE (16:45)
[2018-03-23] MEDS ORDERED: vancomycin/NS 1 GM ADD-VANTAGE 250 ML IV PRN (16:50)
[2018-03-23 19:00] VITALS: BP 150/62
[2018-03-23] MEDS ORDERED: piperacillin/tazo 3.375gm/50ml 50 ML IV SCH (20:00)
[2018-03-23] MEDS: cefepime inj. 0.5 GM in normal saline 100ml IV soln 100 ML IV SCH (20:31)
[2018-03-23] MEDS: Melatonin 3mg tablet PO SCH (20:31)
[2018-03-23 23:00] VITALS: BP 138/59
[2018-03-24] MEDS: normal saline 1000ml 1,000 ML IV SCH ×2 (01:48→17:04)
[2018-03-24 03:00] VITALS: BP 152/62
[2018-03-24] MEDS: VANCOMYCIN LEVEL IV SCH (03:00)
[2018-03-24 05:04] LABS: BASOPHILS # (AUTO) 0.1 X10'3 (0-0.2); BASOPHILS % (AUTO) 0.5 % (0-1); EOSINOPHILS # (AUTO) 0.3 X10'3 (0-0.9); EOSINOPHILS % (AUTO) 2.1 % (0-6); HEMATOCRIT 26.7 % (42.0-52.0); HEMOGLOBIN 8.9 g/dl (14.0-17.9); LYMPHOCYTES # (AUTO) 0.7 X10'3 (1.1-4.8); LYMPHOCYTES % (AUTO) 4.8 % (21-51); MEAN CORPUSCULAR HEMOGLOBIN 29.6 PG (27.0-31.0); MEAN CORPUSCULAR HGB CONC 33.5 % (33.0-36.5); MEAN CORPUSCULAR VOLUME 88.4 FL (78-98); MEAN PLATELET VOLUME 8.3 FL (7.4-10.4); MONOCYTES % (AUTO) 7.4 % (2-12); NEUTROPHILS # (AUTO) 11.8 X10'3 (1.8-7.7); NEUTROPHILS % (AUTO) 85.2 % (42-75); PLATELET COUNT 249 X10'3 (140-440); RED BLOOD COUNT 3.02 X10'6 (4.70-6.10); RED CELL DISTRIBUTION WIDTH 15.4 % (11.5-14.5); WHITE BLOOD COUNT 13.8 X10'3 (4.5-11.0)
[2018-03-24 06:00] VITALS: BP 163/58
[2018-03-24 06:06] LABS: ALANINE AMINOTRANSFERASE 23 U/L (12-78); ALBUMIN 1.9 G/DL (3.4-5.0); ALBUMIN/GLOBULIN RATIO 0.7 (1.1-1.5); ALKALINE PHOSPHATASE 72 IU/L (46-116); ANION GAP 5 (8-16); ASPARTATE AMINO TRANSFERASE 18 U/L (10-37); BILIRUBIN,TOTAL 0.3 MG/DL (0.1-1.0); BLOOD UREA NITROGEN 55 MG/DL (7-18); BUN/CREATININE RATIO 18.1 (5.4-32.0); CALCIUM 7.7 MG/DL (8.5-10.1); CHLORIDE 113 MMOL/L (99-107); CREATININE 3.04 MG/DL (0.60-1.10); GLUCOSE 79 MG/DL (70-104); MAGNESIUM 1.4 MG/DL (1.5-2.4); PHOSPHORUS 3.8 MG/DL (2.3-4.5); POTASSIUM 4.3 MMOL/L (3.5-5.1); SODIUM 142 MMOL/L (135-145); TOTAL CARBON DIOXIDE 23.7 MMOL/L (24-32); TOTAL PROTEIN 4.7 G/DL (6.4-8.2); VANCOMYCIN,RANDOM 11.1 UG/ML; eGFR 20 ML/MIN
[2018-03-24] MEDS ORDERED: vancomycin/NS 1 GM ADD-VANTAGE 250 ML IV ONE (06:55)
[2018-03-24] MEDS: pantoprazole 40mg Tablet.DR PO SCH ×2 (07:23→19:08)
[2018-03-24] MEDS: nicotine 21mg patch - 24 hr TD SCH (07:26)
[2018-03-24] MEDS ORDERED: vancomycin/NS 1 GM ADD-VANTAGE 250 ML IV SCH (08:00)
[2018-03-24] MEDS: ipratropium 0.5 MG/2.5ML nebule IH SCH ×3 (08:03→19:31)
[2018-03-24] MEDS: docusate sod 100mg capsule PO SCH ×2 (08:18→19:07)
[2018-03-24] MEDS: lactobacillus rhamnosus 10,000 MMU CELLS/CAPSULE PO SCH ×2 (08:19→19:08)
[2018-03-24] MEDS: magnesium Cl slow-release 64mg tablet PO PRN ×2 (08:19→21:10)
[2018-03-24] MEDS: carVEDilol 12.5mg tablet PO SCH ×2 (08:20→19:08)
[2018-03-24] MEDS: amLODIPine 5mg tablet PO SCH (08:20)
[2018-03-24] MEDS: tamsulosin 0.4mg capsule PO SCH (08:21)
[2018-03-24] MEDS: cefepime inj. 0.5 GM in normal saline 100ml IV soln 100 ML IV SCH (09:08)
[2018-03-24 11:09] VITALS: BP 162/66
[2018-03-24 17:24] VITALS: BP 146/67
[2018-03-24 19:00] VITALS: BP 168/74
[2018-03-24] MEDS: insulin Lispro (HumaLOG) vial - multi-dose SQ SCH (19:06)
[2018-03-24] MEDS: Melatonin 3mg tablet PO SCH (21:10)
[2018-03-24 23:00] VITALS: BP 166/72
[2018-03-25 03:00] VITALS: BP 147/51
[2018-03-25] MEDS: VANCOMYCIN LEVEL IV SCH (03:00)
[2018-03-25 05:11] LABS: BASOPHILS % (AUTO) 0.1 % (0-1); EOSINOPHILS # (AUTO) 0.3 X10'3 (0-0.9); EOSINOPHILS % (AUTO) 1.7 % (0-6); HEMATOCRIT 26.3 % (42.0-52.0); HEMOGLOBIN 8.9 g/dl (14.0-17.9); LYMPHOCYTES # (AUTO) 0.5 X10'3 (1.1-4.8); LYMPHOCYTES % (AUTO) 2.6 % (21-51); MEAN CORPUSCULAR HEMOGLOBIN 29.6 PG (27.0-31.0); MEAN CORPUSCULAR HGB CONC 33.8 % (33.0-36.5); MEAN CORPUSCULAR VOLUME 87.6 FL (78-98); MEAN PLATELET VOLUME 8.3 FL (7.4-10.4); MONOCYTES # (AUTO) 1.5 X10'3 (0-0.9); MONOCYTES % (AUTO) 7.8 % (2-12); NEUTROPHILS # (AUTO) 17.4 X10'3 (1.8-7.7); NEUTROPHILS % (AUTO) 87.8 % (42-75); PLATELET COUNT 243 X10'3 (140-440); RED CELL DISTRIBUTION WIDTH 15.1 % (11.5-14.5); WHITE BLOOD COUNT 19.8 X10'3 (4.5-11.0)
[2018-03-25 05:57] LABS: ALANINE AMINOTRANSFERASE 21 U/L (12-78); ALBUMIN 1.8 G/DL (3.4-5.0); ALBUMIN/GLOBULIN RATIO 0.6 (1.1-1.5); ALKALINE PHOSPHATASE 79 IU/L (46-116); ANION GAP 9 (8-16); ASPARTATE AMINO TRANSFERASE 13 U/L (10-37); BILIRUBIN,TOTAL 0.4 MG/DL (0.1-1.0); BLOOD UREA NITROGEN 50 MG/DL (7-18); BUN/CREATININE RATIO 16.8 (5.4-32.0); CALCIUM 8.4 MG/DL (8.5-10.1); CHLORIDE 110 MMOL/L (99-107); CREATININE 2.98 MG/DL (0.60-1.10); GLUCOSE 121 MG/DL (70-104); MAGNESIUM 1.3 MG/DL (1.5-2.4); PHOSPHORUS 2.9 MG/DL (2.3-4.5); POTASSIUM 4.2 MMOL/L (3.5-5.1); SODIUM 142 MMOL/L (135-145); TOTAL CARBON DIOXIDE 23.2 MMOL/L (24-32); TOTAL PROTEIN 4.9 G/DL (6.4-8.2); eGFR 20 ML/MIN
[2018-03-25 06:00] VITALS: BP 174/72
[2018-03-25] MEDS: normal saline 1000ml 1,000 ML IV SCH ×2 (07:01→19:40)
[2018-03-25] MEDS: lactobacillus rhamnosus 10,000 MMU CELLS/CAPSULE PO SCH ×2 (07:02→20:58)
[2018-03-25] MEDS: docusate sod 100mg capsule PO SCH ×2 (07:02→20:58)
[2018-03-25] MEDS: HYDROcodone/acetaminophen 5mg/325mg tablet PO PRN ×2 (07:02→20:58)
[2018-03-25] MEDS: tamsulosin 0.4mg capsule PO SCH (07:02)
[2018-03-25] MEDS: pantoprazole 40mg Tablet.DR PO SCH ×2 (07:02→20:58)
[2018-03-25] MEDS: carVEDilol 12.5mg tablet PO SCH ×2 (07:03→20:57)
[2018-03-25] MEDS: amLODIPine 5mg tablet PO SCH (07:03)
[2018-03-25] MEDS: nicotine 21mg patch - 24 hr TD SCH (07:03)
[2018-03-25] MEDS: cefepime inj. 0.5 GM in normal saline 100ml IV soln 100 ML IV SCH (07:04)
[2018-03-25] MEDS: ipratropium 0.5 MG/2.5ML nebule IH SCH ×3 (07:54→20:37)
[2018-03-25 11:00] VITALS: BP 115/49
[2018-03-25] MEDS: insulin Lispro (HumaLOG) vial - multi-dose SQ SCH ×2 (13:08→19:34)
[2018-03-25 15:00] VITALS: BP 144/61
[2018-03-25] MEDS: hyDRALAzine 10mg tablet PO SCH (16:12)
[2018-03-25 19:30] VITALS: BP 156/69
[2018-03-25] MEDS: Melatonin 3mg tablet PO SCH (20:58)
[2018-03-25] MEDS: magnesium Cl slow-release 64mg tablet PO PRN (20:59)
[2018-03-25 22:30] VITALS: BP 105/56
[2018-03-26 02:30] VITALS: BP 127/61
[2018-03-26] MEDS: VANCOMYCIN LEVEL IV SCH (03:00)
[2018-03-26 05:05] LABS: BASOPHILS % (AUTO) 0.2 % (0-1); EOSINOPHILS % (AUTO) 0.2 % (0-6); HEMATOCRIT 24.7 % (42.0-52.0); HEMOGLOBIN 8.3 g/dl (14.0-17.9); LYMPHOCYTES # (AUTO) 0.5 X10'3 (1.1-4.8); LYMPHOCYTES % (AUTO) 3.3 % (21-51); MEAN CORPUSCULAR HEMOGLOBIN 29.6 PG (27.0-31.0); MEAN CORPUSCULAR HGB CONC 33.5 % (33.0-36.5); MEAN CORPUSCULAR VOLUME 88.5 FL (78-98); MEAN PLATELET VOLUME 8.1 FL (7.4-10.4); MONOCYTES # (AUTO) 1.5 X10'3 (0-0.9); MONOCYTES % (AUTO) 9.2 % (2-12); NEUTROPHILS # (AUTO) 14.2 X10'3 (1.8-7.7); NEUTROPHILS % (AUTO) 87.1 % (42-75); PLATELET COUNT 223 X10'3 (140-440); RED BLOOD COUNT 2.79 X10'6 (4.70-6.10); RED CELL DISTRIBUTION WIDTH 15.7 % (11.5-14.5); WHITE BLOOD COUNT 16.3 X10'3 (4.5-11.0)
[2018-03-26 05:27] LABS: ALANINE AMINOTRANSFERASE 16 U/L (12-78); ALBUMIN 1.6 G/DL (3.4-5.0); ALBUMIN/GLOBULIN RATIO 0.5 (1.1-1.5); ALKALINE PHOSPHATASE 73 IU/L (46-116); ANION GAP 5 (8-16); ASPARTATE AMINO TRANSFERASE 13 U/L (10-37); BILIRUBIN,TOTAL 0.3 MG/DL (0.1-1.0); BLOOD UREA NITROGEN 49 MG/DL (7-18); BUN/CREATININE RATIO 16.7 (5.4-32.0); CALCIUM 8.1 MG/DL (8.5-10.1); CHLORIDE 109 MMOL/L (99-107); CREATININE 2.93 MG/DL (0.60-1.10); GLUCOSE 113 MG/DL (70-104); MAGNESIUM 1.4 MG/DL (1.5-2.4); POTASSIUM 4.3 MMOL/L (3.5-5.1); SODIUM 140 MMOL/L (135-145); TOTAL CARBON DIOXIDE 25.7 MMOL/L (24-32); TOTAL PROTEIN 4.8 G/DL (6.4-8.2); eGFR 21 ML/MIN
[2018-03-26] MEDS: ipratropium 0.5 MG/2.5ML nebule IH SCH ×4 (07:48→20:30)
[2018-03-26] MEDS: nicotine 21mg patch - 24 hr TD SCH (08:00)
[2018-03-26] MEDS: HYDROcodone/acetaminophen 5mg/325mg tablet PO PRN (09:03)
[2018-03-26] MEDS: hyDRALAzine 10mg tablet PO SCH ×4 (09:04→23:34)
[2018-03-26] MEDS: cefepime inj. 0.5 GM in normal saline 100ml IV soln 100 ML IV SCH (09:04)
[2018-03-26] MEDS: lactobacillus rhamnosus 10,000 MMU CELLS/CAPSULE PO SCH ×2 (09:05→19:21)
[2018-03-26] MEDS: amLODIPine 5mg tablet PO SCH (09:05)
[2018-03-26] MEDS: tamsulosin 0.4mg capsule PO SCH (09:05)
[2018-03-26] MEDS: docusate sod 100mg capsule PO SCH ×2 (09:05→19:22)
[2018-03-26] MEDS: carVEDilol 12.5mg tablet PO SCH ×2 (09:05→19:22)
[2018-03-26] MEDS: pantoprazole 40mg Tablet.DR PO SCH ×2 (09:06→19:22)
[2018-03-26] MEDS: insulin Lispro (HumaLOG) vial - multi-dose SQ SCH ×2 (10:08→14:28)
[2018-03-26] MEDS: magnesium Cl slow-release 64mg tablet PO PRN (10:09)
[2018-03-26 11:00] VITALS: BP 131/62
[2018-03-26 15:00] VITALS: BP 110/50
[2018-03-26 18:00] VITALS: BP 123/60
[2018-03-26] MEDS ORDERED: magnesium Cl slow-release 64mg tablet PO PRN (19:45)
[2018-03-26] MEDS ORDERED: magnesium 1gm/100ml D5W IVPB 50 ML IV PRN (19:45)
[2018-03-26] MEDS ORDERED: potassium Cl 40MEQ/NS 500ml 500 ML IV PRN ×2 (19:45)
[2018-03-26] MEDS ORDERED: magnesium 4gm in 100ml NS 100 ML IV PRN (19:45)
[2018-03-26] MEDS ORDERED: potassium Cl 20 mEq SR tablet PO PRN ×2 (19:45)
[2018-03-26] MEDS: Melatonin 3mg tablet PO SCH (20:47)
[2018-03-26 22:00] VITALS: BP 127/50
[2018-03-27] VITALS (15 sets, daily range): BP systolic 110–142; BP diastolic 44–65
[2018-03-27] MEDS: HYDROcodone/acetaminophen 5mg/325mg tablet PO PRN ×2 (02:55→08:05)
[2018-03-27] MEDS: VANCOMYCIN LEVEL IV SCH (02:57)
[2018-03-27 05:41] LABS: BASOPHILS # (AUTO) 0.1 X10'3 (0-0.2); BASOPHILS % (AUTO) 0.5 % (0-1); EOSINOPHILS # (AUTO) 0.2 X10'3 (0-0.9); EOSINOPHILS % (AUTO) 2.1 % (0-6); HEMOGLOBIN 7.4 g/dl (14.0-17.9); LYMPHOCYTES # (AUTO) 0.5 X10'3 (1.1-4.8); LYMPHOCYTES % (AUTO) 4.9 % (21-51); MEAN CORPUSCULAR HEMOGLOBIN 29.4 PG (27.0-31.0); MEAN CORPUSCULAR HGB CONC 33.4 % (33.0-36.5); MEAN CORPUSCULAR VOLUME 88.1 FL (78-98); MEAN PLATELET VOLUME 8.1 FL (7.4-10.4); MONOCYTES % (AUTO) 8.8 % (2-12); NEUTROPHILS # (AUTO) 9.3 X10'3 (1.8-7.7); NEUTROPHILS % (AUTO) 83.7 % (42-75); PLATELET COUNT 200 X10'3 (140-440); WHITE BLOOD COUNT 11.2 X10'3 (4.5-11.0)
[2018-03-27 06:12] LABS: ALANINE AMINOTRANSFERASE 17 U/L (12-78); ALBUMIN 1.4 G/DL (3.4-5.0); ALBUMIN/GLOBULIN RATIO 0.5 (1.1-1.5); ALKALINE PHOSPHATASE 85 IU/L (46-116); ANION GAP 9 (8-16); ASPARTATE AMINO TRANSFERASE 12 U/L (10-37); BILIRUBIN,TOTAL 0.3 MG/DL (0.1-1.0); BLOOD UREA NITROGEN 53 MG/DL (7-18); BUN/CREATININE RATIO 16.7 (5.4-32.0); CALCIUM 8.3 MG/DL (8.5-10.1); CHLORIDE 111 MMOL/L (99-107); CREATININE 3.18 MG/DL (0.60-1.10); GLUCOSE 92 MG/DL (70-104); MAGNESIUM 1.5 MG/DL (1.5-2.4); PHOSPHORUS 4.4 MG/DL (2.3-4.5); POTASSIUM 4.5 MMOL/L (3.5-5.1); SODIUM 143 MMOL/L (135-145); TOTAL CARBON DIOXIDE 23.4 MMOL/L (24-32); TOTAL PROTEIN 4.5 G/DL (6.4-8.2); VANCOMYCIN,RANDOM 19.1 UG/ML; eGFR 19 ML/MIN
[2018-03-27] MEDS: normal saline 1000ml 1,000 ML IV SCH (07:05)
[2018-03-27] MEDS: carVEDilol 12.5mg tablet PO SCH ×2 (08:00→19:13)
[2018-03-27] MEDS: hyDRALAzine 10mg tablet PO SCH ×3 (08:00→23:11)
[2018-03-27] MEDS: docusate sod 100mg capsule PO SCH ×2 (08:00→19:14)
[2018-03-27] MEDS: tamsulosin 0.4mg capsule PO SCH (08:00)
[2018-03-27] MEDS: pantoprazole 40mg Tablet.DR PO SCH (08:00)
[2018-03-27] MEDS: lactobacillus rhamnosus 10,000 MMU CELLS/CAPSULE PO SCH ×2 (08:00→19:13)
[2018-03-27] MEDS: nicotine 21mg patch - 24 hr TD SCH (08:00)
[2018-03-27] MEDS: K and/or MAG REPLACEMENT MC SCH (08:00)
[2018-03-27] MEDS: amLODIPine 5mg tablet PO SCH (08:00)
[2018-03-27] MEDS: ipratropium 0.5 MG/2.5ML nebule IH SCH ×3 (08:04→20:30)
[2018-03-27] MEDS: insulin Lispro (HumaLOG) vial - multi-dose SQ SCH ×2 (09:14→14:09)
[2018-03-27] MEDS ORDERED: pantoprazole 40 MG vial IV ONE (13:35)
[2018-03-27] MEDS: pantoprazole 40 MG vial IV SCH (19:14)
[2018-03-27] MEDS: Melatonin 3mg tablet PO SCH (21:32)
[2018-03-28] VITALS (15 sets, daily range): BP systolic 107–157; BP diastolic 56–81
[2018-03-28 05:53] LABS: BASOPHILS # (AUTO) 0.1 X10'3 (0-0.2); BASOPHILS % (AUTO) 0.5 % (0-1); EOSINOPHILS # (AUTO) 0.3 X10'3 (0-0.9); EOSINOPHILS % (AUTO) 2.5 % (0-6); HEMATOCRIT 26.6 % (42.0-52.0); LYMPHOCYTES # (AUTO) 0.6 X10'3 (1.1-4.8); MEAN CORPUSCULAR HEMOGLOBIN 29.8 PG (27.0-31.0); MEAN CORPUSCULAR HGB CONC 33.9 % (33.0-36.5); MEAN CORPUSCULAR VOLUME 88.1 FL (78-98); MEAN PLATELET VOLUME 8.4 FL (7.4-10.4); MONOCYTES # (AUTO) 0.8 X10'3 (0-0.9); MONOCYTES % (AUTO) 7.9 % (2-12); NEUTROPHILS # (AUTO) 8.7 X10'3 (1.8-7.7); NEUTROPHILS % (AUTO) 83.1 % (42-75); PLATELET COUNT 206 X10'3 (140-440); RED BLOOD COUNT 3.02 X10'6 (4.70-6.10); WHITE BLOOD COUNT 10.5 X10'3 (4.5-11.0)
[2018-03-28 06:07] LABS: ALANINE AMINOTRANSFERASE 16 U/L (12-78); ALBUMIN 1.5 G/DL (3.4-5.0); ALBUMIN/GLOBULIN RATIO 0.5 (1.1-1.5); ALKALINE PHOSPHATASE 112 IU/L (46-116); ANION GAP 7 (8-16); ASPARTATE AMINO TRANSFERASE 13 U/L (10-37); BILIRUBIN,TOTAL 0.4 MG/DL (0.1-1.0); BLOOD UREA NITROGEN 57 MG/DL (7-18); BUN/CREATININE RATIO 17.7 (5.4-32.0); CALCIUM 8.3 MG/DL (8.5-10.1); CHLORIDE 111 MMOL/L (99-107); CREATININE 3.22 MG/DL (0.60-1.10); GLUCOSE 99 MG/DL (70-104); MAGNESIUM 1.6 MG/DL (1.5-2.4); PHOSPHORUS 4.3 MG/DL (2.3-4.5); POTASSIUM 4.5 MMOL/L (3.5-5.1); SODIUM 143 MMOL/L (135-145); TOTAL CARBON DIOXIDE 24.9 MMOL/L (24-32); TOTAL PROTEIN 4.7 G/DL (6.4-8.2); eGFR 18 ML/MIN
[2018-03-28] MEDS: carVEDilol 12.5mg tablet PO SCH ×2 (07:18→20:08)
[2018-03-28] MEDS: amLODIPine 5mg tablet PO SCH (07:18)
[2018-03-28] MEDS: lactobacillus rhamnosus 10,000 MMU CELLS/CAPSULE PO SCH ×2 (07:18→20:09)
[2018-03-28] MEDS: hyDRALAzine 10mg tablet PO SCH ×3 (07:18→23:27)
[2018-03-28] MEDS: pantoprazole 40 MG vial IV SCH (07:18)
[2018-03-28] MEDS: docusate sod 100mg capsule PO SCH ×2 (07:18→20:09)
[2018-03-28] MEDS: tamsulosin 0.4mg capsule PO SCH (07:18)
[2018-03-28] MEDS: HYDROcodone/acetaminophen 5mg/325mg tablet PO PRN (07:19)
[2018-03-28] MEDS: nicotine 21mg patch - 24 hr TD SCH (07:32)
[2018-03-28] MEDS: K and/or MAG REPLACEMENT MC SCH (08:00)
[2018-03-28] MEDS: ipratropium 0.5 MG/2.5ML nebule IH SCH ×3 (08:02→21:17)
[2018-03-28] MEDS ORDERED: fentaNYL/PF 50MCG/1 ML 2ML syringe ONE (13:02)
[2018-03-28] MEDS ORDERED: MIDAZolam 5mg/5ml vial ONE (13:03)
[2018-03-28] MEDS ORDERED: LIDOcaine Viscous 15ml cup ONE (13:03)
[2018-03-28] MEDS: Melatonin 3mg tablet PO SCH (20:09)
[2018-03-28] MEDS: pantoprazole 40mg Tablet.DR PO SCH (20:09)
[2018-03-29 03:31] VITALS: BP 144/69
[2018-03-29 05:45] LABS: BASOPHILS # (AUTO) 0.1 X10'3 (0-0.2); BASOPHILS % (AUTO) 0.6 % (0-1); EOSINOPHILS # (AUTO) 0.3 X10'3 (0-0.9); EOSINOPHILS % (AUTO) 3.5 % (0-6); HEMATOCRIT 29.7 % (42.0-52.0); HEMOGLOBIN 10.1 g/dl (14.0-17.9); LYMPHOCYTES # (AUTO) 0.4 X10'3 (1.1-4.8); LYMPHOCYTES % (AUTO) 4.3 % (21-51); MEAN CORPUSCULAR HEMOGLOBIN 29.6 PG (27.0-31.0); MEAN CORPUSCULAR VOLUME 87.1 FL (78-98); MEAN PLATELET VOLUME 8.3 FL (7.4-10.4); MONOCYTES # (AUTO) 0.5 X10'3 (0-0.9); MONOCYTES % (AUTO) 5.2 % (2-12); NEUTROPHILS # (AUTO) 8.5 X10'3 (1.8-7.7); NEUTROPHILS % (AUTO) 86.4 % (42-75); PLATELET COUNT 217 X10'3 (140-440); RED BLOOD COUNT 3.41 X10'6 (4.70-6.10); RED CELL DISTRIBUTION WIDTH 15.4 % (11.5-14.5); WHITE BLOOD COUNT 9.8 X10'3 (4.5-11.0)
[2018-03-29 05:57] LABS: ALANINE AMINOTRANSFERASE 16 U/L (12-78); ALBUMIN 1.7 G/DL (3.4-5.0); ALBUMIN/GLOBULIN RATIO 0.5 (1.1-1.5); ALKALINE PHOSPHATASE 132 IU/L (46-116); ANION GAP 10 (8-16); ASPARTATE AMINO TRANSFERASE 11 U/L (10-37); BILIRUBIN,TOTAL 0.3 MG/DL (0.1-1.0); BLOOD UREA NITROGEN 60 MG/DL (7-18); BUN/CREATININE RATIO 18.6 (5.4-32.0); CALCIUM 8.2 MG/DL (8.5-10.1); CHLORIDE 108 MMOL/L (99-107); CREATININE 3.22 MG/DL (0.60-1.10); GLUCOSE 133 MG/DL (70-104); MAGNESIUM 1.7 MG/DL (1.5-2.4); PHOSPHORUS 4.2 MG/DL (2.3-4.5); POTASSIUM 4.7 MMOL/L (3.5-5.1); SODIUM 141 MMOL/L (135-145); TOTAL PROTEIN 5.4 G/DL (6.4-8.2); eGFR 18 ML/MIN
[2018-03-29 07:00] VITALS: BP 146/66
[2018-03-29] MEDS: normal saline 1000ml 1,000 ML IV SCH (07:05)
[2018-03-29] MEDS: hyDRALAzine 10mg tablet PO SCH (07:08)
[2018-03-29] MEDS: docusate sod 100mg capsule PO SCH (07:09)
[2018-03-29] MEDS: carVEDilol 12.5mg tablet PO SCH (07:09)
[2018-03-29] MEDS: pantoprazole 40mg Tablet.DR PO SCH (07:09)
[2018-03-29] MEDS: lactobacillus rhamnosus 10,000 MMU CELLS/CAPSULE PO SCH (07:09)
[2018-03-29] MEDS: amLODIPine 5mg tablet PO SCH (07:09)
[2018-03-29] MEDS: tamsulosin 0.4mg capsule PO SCH (07:09)
[2018-03-29] MEDS: K and/or MAG REPLACEMENT MC SCH (08:00)
[2018-03-29] MEDS: nicotine 21mg patch - 24 hr TD SCH (08:00)
[2018-03-29] MEDS: ipratropium 0.5 MG/2.5ML nebule IH SCH (08:19)
[2018-03-29 11:00] VITALS: BP 145/56
== END 2018-03-29 13:30 | DRG 377 ==
LOC: PCU 3S 13:10
PROVIDERS: ADMIT Family Medicine; ATTEND Family Medicine
PROC: 0DB68ZX Excision of Stomach, Via Natural or Artificial Opening Endoscopic, Diagnostic (ICD-10-PCS; 2018-03-13)
PROC: 0D598ZZ Destruction of Duodenum, Via Natural or Artificial Opening Endoscopic (ICD-10-PCS; 2018-03-13)
PROC: BT1F1ZZ Fluoroscopy of Left Kidney, Ureter and Bladder using Low Osmolar Contrast (ICD-10-PCS; 2018-03-14)
PROC: 0T778DZ Dilation of Left Ureter with Intraluminal Device, Via Natural or Artificial Opening Endoscopic (ICD-10-PCS; 2018-03-14)
PROC: CT231ZZ Tomographic (Tomo) Nuclear Medicine Imaging of Kidneys, Ureters and Bladder using Technetium 99m (Tc-99m) (ICD-10-PCS; 2018-03-20)
PROC: 30233N1 Transfusion of Nonautologous Red Blood Cells into Peripheral Vein, Percutaneous Approach (ICD-10-PCS; 2018-03-27)
PROC: 0D568ZZ Destruction of Stomach, Via Natural or Artificial Opening Endoscopic (ICD-10-PCS; principal; 2018-03-28)
DX: K29.61 Other gastritis with bleeding (principal); E43 Unspecified severe protein-calorie malnutrition; N13.2 Hydronephrosis with renal and ureteral calculous obstruction; J44.1 Chronic obstructive pulmonary disease with (acute) exacerbation; D62 Acute posthemorrhagic anemia; N17.9 Acute kidney failure, unspecified; N18.4 Chronic kidney disease, stage 4 (severe); N39.0 Urinary tract infection, site not specified; K31.811 Angiodysplasia of stomach and duodenum with bleeding; K26.4 Chronic or unspecified duodenal ulcer with hemorrhage; E87.5 Hyperkalemia; B96.20 Unspecified Escherichia coli [E. coli] as the cause of diseases classified elsewhere; K20.9 Esophagitis, unspecified; D50.9 Iron deficiency anemia, unspecified; E11.22 Type 2 diabetes mellitus with diabetic chronic kidney disease; E11.649 Type 2 diabetes mellitus with hypoglycemia without coma; E78.5 Hyperlipidemia, unspecified; I12.9 Hypertensive chronic kidney disease with stage 1 through stage 4 chronic kidney disease, or unspecified chronic kidney disease; N40.1 Benign prostatic hyperplasia with lower urinary tract symptoms; R09.02 Hypoxemia; Z16.24 Resistance to multiple antibiotics; Z60.2 Problems related to living alone; F17.200 Nicotine dependence, unspecified, uncomplicated; Z99.81 Dependence on supplemental oxygen; Z79.899 Other long term (current) drug therapy; Z87.442 Personal history of urinary calculi; Z68.35 Body mass index [BMI] 35.0-35.9, adult; Z71.6 Tobacco abuse counseling
CPT/HCPCS: 36415; 43239; 71045; 76000; 78707; 80053; 80061; 80202; 81001; 82570; 82948; 83036; 83605; 83690; 83735; 83880; 84100; 84300; 84443; 85025; 85610; 85730; 86885; 86900; 86901; 86920; 87040; 87070; 87077; 87088; 87186; 87207; 88305; 93005; 94640; 94760; 97116; 97162; 97530; A4402; A4620; A6212; A6213; A6250; A9562; C1758; C1769; C2617; C9113; G0500; J0692; J1956; J2250; J2543; J2930; J3010; J3370; J7030; J7120; P9016; Q9967